=== PATIENT | male | born 1975 | race Caucasian/White ===

== ENCOUNTER 2022-10-11 16:13 | Emergency (ER) | payer OTHER ==
--- NOTE | 2022-10-11 16:47 | ERPHSYRPT ---
- History of Present Illness Time Seen by Provider: 10/11/22 16:40 Source: patient, family Exam Limitations: no limitations Patient Subjective Stated Complaint: C/O pain in right shoulder. Patient states he has been having intermittent pain for the past 6 months but the pain has become more severe and constant in the past week. Patient describes pain as a pressure and "tyler hoarse" feeling. Indicates pain is now moving into the right side of his neck and chest as well. States right bicep area is numb. Triage Nursing Assessment: Patient ambulated back to ED without difficulties. No SOB. Skin tone normal, warm, dry. He is alert and oriented but anxious. ESPINOSA WNL. Patient able to remove clothing and place self in a gown without assistance or decreased movement/ROM during the process. No skin alterations noted. Patient denies injury to back, neck, or arm; denies falls. Physician History: pt has had intermittent right shoulder pain radiating down ulnar distribution for 6 months and aggravated by turning head to right. No actual CP or SOBreath but has family ht problems at early ages and hx hptn himself, no longer requiring tx , but elevated on exam today. No prior ht dx known for himself. States that he had prior ETOH concerns but was able to quit. No Hx of trauma. decreased sensation in right c8-T1 distribution. normal strength and technical support coordinator. normal neuro exam otherwise. Chest clear, Ht reg. independent interview data from pt and consistent. Ordered EKG, Trops, D dimer, CBC, CMP, and CXR , reviewed and discussed results with pt and . Occurred: days ago Method of Injury: unknown Quality: constant Severity of Pain-Max: moderate Severity of Pain-Current: moderate Extremities Pain Location: shoulder: right, arm: right, elbow: right, forearm: right Modifying Factors: Improves With: immobilization, movement Associated Symptoms: back pain Allergies/Adverse Reactions: No Known Drug Allergies Allergy (Verified 10/11/22 16:22) Hx Tetanus, Diphtheria Vaccination/Date Given: Yes Hx Influenza Vaccination/Date Given: No Hx Pneumococcal Vaccination/Date Given: No Immunizations Up to Date: Yes Travel Risk - International Travel Have you traveled outside of the country in past 3 weeks: No - Coronavirus Screening Are you exhibiting any of the following symptoms?: No Close contact with a COVID-19 positive Pt in past 14-21 Days: No - Vaccine Status Have you recieved a Covid-19 vaccination: No - Review of Systems Constitutional: No Fever, No Chills Eyes: No Symptoms Ears, Nose, & Throat: No Symptoms Respiratory: No Cough, No Dyspnea Cardiac: No Chest Pain, No Edema, No Syncope Abdominal/Gastrointestinal: No Abdominal Pain, No Nausea, No Vomiting, No Diarrhea Genitourinary Symptoms: No Dysuria Musculoskeletal: Back Pain, Neck Pain, No Fall Skin: No Symptoms, No Rash Neurological: Parasthesia, Sensory Changes, No Dizziness, No Focal Weakness Psychological: No Symptoms Endocrine: No Symptoms Hematologic/Lymphatic: No Symptoms Immunological/Allergic: No Symptoms All Other Systems: Reviewed and Negative - Past Medical History Pertinent Past Medical History: Yes Cardiac History: Other Respiratory History: Asthma Other Medical History: "genetic heart condition" - Past Surgical History Past Surgical History: Yes - Social History Smoking Status: Current every day smoker How long have you smoked: many years Exposure to second hand smoke: No Drug Use: marijuana Patient Lives Alone: No - Nursing Vital Signs Nursing Vital Signs: Initial Vital Signs Temperature 98.4 F 10/11/22 16:24 Pulse Rate 92 H 10/11/22 16:24 Respiratory Rate 20 10/11/22 16:24 Blood Pressure 164/104 10/11/22 16:24 O2 Sat by Pulse Oximetry 99 10/11/22 16:24 Pain Scale Pain Intensity 8 - Physical Exam General Appearance: alert Eyes, Ears, Nose, Throat Exam: moist mucous membranes Neck Exam: non-tender, supple Cardiovascular/Respiratory Exam: chest non-tender, normal breath sounds, regular rate/rhythm, no respiratory distress Abdominal Exam: non-tender, No guarding Back Exam: normal inspection, No vertebral tenderness Shoulder Exam: normal inspection, non-tender, no evidence of injury, normal ROM Elbow/Forearm Exam: normal inspection, non-tender, no evidence of injury, normal ROM Wrist Exam: normal inspection, non-tender, no evidence of injury, normal ROM Hand Exam: normal inspection, non-tender, no evidence of injury, normal ROM DTR - Upper Extremity Exam: bicep (R): 2+, bicep (L): 2+, tricep (R): 2+, tricep (L): 2+ Neuro/Tendon Exam: normal sensation, normal motor functions, normal tendon functions Mental Status Exam: alert, oriented x 3, cooperative Skin Exam: normal color, warm, dry SpO2 Interpretation: normal SpO2: 99 O2 Delivery: Room Air - Course Nursing assessment & vital signs reviewed: Yes EKG Interpreted by Me: Sinus Rhythm, NORMAL AXIS, NORMAL INTERVALS, NORMAL QRS, NORMAL ST-T - Radiology Exams Chest X-ray Interpretation: Reviewed by me, Other (granulomas, patchy infiltrates vs scars. normal medistinum/ht size) Ordered Tests: Active Orders 24 hr Category Date Time Status EKG-ER Only STAT Care 10/11/22 16:50 Active IV Insertion STAT Care 10/11/22 16:50 Active CHEST 2 VIEWS (PA AND LAT) Stat Exams 10/11/22 17:40 Taken CBC W DIFF Stat Lab 10/11/22 17:01 Completed CMP Stat Lab 10/11/22 17:01 Completed D-DIMER QUANTITATIVE Stat Lab 10/11/22 16:45 Completed Lactic Acid Stat Lab 10/11/22 16:50 Completed TROPONIN Q4H Lab 10/11/22 17:01 Completed TROPONIN Q4H Lab 10/11/22 21:00 Ordered TROPONIN Q4H Lab 10/12/22 01:00 Ordered Medication Summary Discontinued Medications Generic Name Dose Route Start Last Admin Trade Name Freq PRN Reason Stop Dose Admin Methylprednisolone Sodium 0 mg 10/11/22 18:03 10/11/22 18:08 Succinate 125 mg/ Sterile IV 10/11/22 18:04 125 mg Water 2 ml STAT ONE Administration Hydromorphone HCl 1 mg 10/11/22 18:03 10/11/22 18:08 Hydromorphone 1 Mg/1ml Inj 1 Mg/Ml Syringe IV 10/11/22 18:04 1 mg STAT ONE Administration Hydromorphone HCl Confirm 10/11/22 18:05 Hydromorphone 1 Mg/1ml Inj 1 Mg/Ml Syringe Administered 10/11/22 18:06 Dose 1 mg .ROUTE .STK-MED ONE Sodium Chloride 1,000 mls @ 999 mls/hr 10/11/22 16:50 10/11/22 18:04 Sodium Chloride 0.9% 1000 Ml IV 10/11/22 17:50 Infused .Q1H1M STA Infusion Sodium Chloride Confirm 10/11/22 16:59 Sodium Chloride 0.9% 1000 Ml Administered 10/11/22 17:00 Dose 1,000 mls @ ud .ROUTE .STK-MED ONE Ketorolac Tromethamine 30 mg 10/11/22 16:56 10/11/22 17:01 Ketorolac Tromethamine 30 Mg/Ml Inj IV 10/11/22 16:57 30 mg STAT ONE Administration Ketorolac Tromethamine Confirm 10/11/22 16:59 Ketorolac Tromethamine 30 Mg/Ml Inj Administered 10/11/22 17:00 Dose 30 mg .ROUTE .STK-MED ONE Methylprednisolone Sodium Succinate Confirm 10/11/22 18:05 Methylprednis Sod Succ 125 Mg/2 Ml Vial Administered 10/11/22 18:06 Dose 125 mg .ROUTE .STK-MED ONE Ondansetron HCl 4 mg 10/11/22 16:56 10/11/22 17:01 Ondansetron Hcl 4 Mg/2 Ml Vial IV 10/11/22 16:57 4 mg STAT ONE Administration Ondansetron HCl Confirm 10/11/22 16:59 Ondansetron Hcl 4 Mg/2 Ml Vial Administered 10/11/22 17:00 Dose 4 mg .ROUTE .STK-MED ONE Orphenadrine Citrate 60 mg 10/11/22 17:06 10/11/22 17:38 Orphenadrine Citrate 60 Mg/2 Ml Vial IM 10/11/22 17:07 60 mg STAT ONE Administration Orphenadrine Citrate Confirm 10/11/22 17:37 Orphenadrine Citrate 60 Mg/2 Ml Vial Administered 10/11/22 17:38 Dose 60 mg .ROUTE .STK-MED ONE Sterile Water Confirm 10/11/22 18:05 Water For Injection,Sterile 10 Ml Vial Administered 10/11/22 18:06 Dose 10 ml IJ .STK-MED ONE Lab/Rad Data: Laboratory Result Diagrams 10/11/22 17:01 10/11/22 17:01 Laboratory Results 10/11/22 10/11/22 10/11/22 Range/Units 17:01 17:01 17:01 WBC 7.3 (4.0-10.5) x10^3/uL RBC 5.24 (4.1-5.6) x10^6/uL Hgb 16.2 (12.5-18.0) g/dL Hct 48.0 (42-50) % MCV 91.6 (78-100) fL MCH 30.9 (26-32) pg MCHC 33.8 (32-36) g/dL RDW 12.4 (11.5-14.0) % Plt Count 218 (150-450) x10^3/uL MPV 11.3 H (7.5-11.0) fL Gran % 73.7 H (36.0-66.0) % Immature Gran % (Auto) 0.3 (0.00-0.4) % Nucleat RBC Rel Count 0.0 (0.00-0.1) % Eos # (Auto) 0.10 (0-0.5) x10^3/uL Immature Gran # (Auto) 0.02 (0.00-0.03) x10^3u/L Absolute Lymphs (auto) 1.42 (1.0-4.6) x10^3/uL Absolute Monos (auto) 0.36 (0.0-1.3) x10^3/uL Absolute Nucleated RBC 0.00 (0.00-0.01) x10^3u/L Lymphocytes % 19.4 L (24.0-44.0) % Monocytes % 4.9 (0.0-12.0) % Eosinophils % 1.4 (0.00-5.0) % Basophils % 0.3 (0.0-0.4) % Absolute Granulocytes 5.39 (1.4-6.9) x10^3/uL Basophils # 0.02 (0-0.4) x10^3/uL D-Dimer (0.0-0.50) mg/L Sodium 134 L (137-145) mmol/L Potassium 4.1 (3.5-5.1) mmol/L Chloride 105 (98-107) mmol/L Carbon Dioxide 24 (22-30) mmol/L Anion Gap 9.9 (5-15) MEQ/L BUN 12 (9-20) mg/dL Creatinine 0.95 (0.66-1.25) mg/dL Estimated GFR > 60.0 ML/MIN Glucose 157 H (74-106) mg/dL Lactic Acid (0.4-2.0) Calcium 9.6 (8.4-10.2) mg/dL Total Bilirubin 0.60 (0.2-1.3) mg/dL AST 25 (17-59) U/L ALT 25 (0-50) U/L Alkaline Phosphatase 72 (38-126) U/L Troponin I < 0.012 (0.000-0.034) ng/mL Serum Total Protein 7.1 (6.3-8.2) g/dL Albumin 4.6 (3.5-5.0) g/dL 10/11/22 10/11/22 Range/Units 16:50 16:45 WBC (4.0-10.5) x10^3/uL RBC (4.1-5.6) x10^6/uL Hgb (12.5-18.0) g/dL Hct (42-50) % MCV (78-100) fL MCH (26-32) pg MCHC (32-36) g/dL RDW (11.5-14.0) % Plt Count (150-450) x10^3/uL MPV (7.5-11.0) fL Gran % (36.0-66.0) % Immature Gran % (Auto) (0.00-0.4) % Nucleat RBC Rel Count (0.00-0.1) % Eos # (Auto) (0-0.5) x10^3/uL Immature Gran # (Auto) (0.00-0.03) x10^3u/L Absolute Lymphs (auto) (1.0-4.6) x10^3/uL Absolute Monos (auto) (0.0-1.3) x10^3/uL Absolute Nucleated RBC (0.00-0.01) x10^3u/L Lymphocytes % (24.0-44.0) % Monocytes % (0.0-12.0) % Eosinophils % (0.00-5.0) % Basophils % (0.0-0.4) % Absolute Granulocytes (1.4-6.9) x10^3/uL Basophils # (0-0.4) x10^3/uL D-Dimer < 0.19 (0.0-0.50) mg/L Sodium (137-145) mmol/L Potassium (3.5-5.1) mmol/L Chloride (98-107) mmol/L Carbon Dioxide (22-30) mmol/L Anion Gap (5-15) MEQ/L BUN (9-20) mg/dL Creatinine (0.66-1.25) mg/dL Estimated GFR ML/MIN Glucose (74-106) mg/dL Lactic Acid 1.1 (0.4-2.0) Calcium (8.4-10.2) mg/dL Total Bilirubin (0.2-1.3) mg/dL AST (17-59) U/L ALT (0-50) U/L Alkaline Phosphatase (38-126) U/L Troponin I (0.000-0.034) ng/mL Serum Total Protein (6.3-8.2) g/dL Albumin (3.5-5.0) g/dL - Progress Progress: improved, re-examined Progress Note: 10/11/22 18:05 pt is advised that although the symptoms are most consistent with cervical disc Dx, and EKG and trops are normal, there still could be additional pathology evolving undetected including cardiac , vascular or other which could be serious, and he requires further w/u to precisely identify the cause of his symptoms. He understands and prefers outpt f/u rather than further w/u or observation in hospital and has the capacity to make this choice, which is reasonable given the current findings and Hx. 10/11/22 19:04 pain resolved after Tx. and pt wishes to go for outpt f/u. 10/11/22 19:10 pt advised to see pmd for bp and smoking cessation 10/11/22 19:11 Ordered EKG, Trops, D DImer, CBC, CMP , CXR, reviewed and advised pt results and to f/u PMD. Counseled pt/family regarding: lab results, diagnosis, need for follow-up, rad results, smoking cessation - Departure Departure Disposition: Home Clinical Impression: neck, back, arm radicular pain Condition: Good Critical Care Time: No Referrals: MARQUISE ABEL [Primary Care Provider] - Follow up/PCP as directed Instructions: Cervical Myelopathy , Herniated Disc (DC), Quitting Smoking ED Additional Instructions: We are providing the instructions for cervical disc Dx but there still may be additional pathology developing undetected even including cardiac or vascular even with normal studies so far. It is important to followup with your Dr. for further workup of the possible disc as well as to continue to rule out other things, and to followup your blood pressure again. Return meantime if any further concerns. Prescriptions: Cyclobenzaprine HCl 10 mg [Cyclobenzaprine 10 MG] 10 mg PO TID PRN PRN #14 tablet PRN Reason: Pain Methylprednisolone Packet [Medrol Dosepack] 4 mg PO UD #30 packet
[2022-10-11] MEDS ORDERED: Sodium Chloride 0.9% 1000 ML 1,000 ML IV STA (16:50)
[2022-10-11] MEDS ORDERED: TORAdol 30 mg Injection IV ONE (16:56)
[2022-10-11] MEDS ORDERED: Zofran 4 MG/2 ML VIAL IV ONE (16:56)
[2022-10-11] MEDS ORDERED: Sodium Chloride 0.9% 1000 ML 1,000 ML ONE (16:59)
[2022-10-11] MEDS ORDERED: Zofran 4 MG/2 ML VIAL ONE (16:59)
[2022-10-11] MEDS ORDERED: TORAdol 30 mg Injection ONE (16:59)
[2022-10-11 17:05] LABS: Absolute Neutrophil Ct (ANC) 5.39 x10^3/uL (1.4-6.9); Basophil (Absolute #) 0.02 x10^3/uL (0-0.4); Eosinophil % 1.4 % (0.00-5.0); Hemoglobin 16.2 g/dL (12.5-18.0); Lymphocyte (Absolute #) 1.42 x10^3/uL (1.0-4.6); Lymphocytes % 19.4 % (24.0-44.0); Mean Cell Volume 91.6 fL (78-100); Mean Corpuscular Hemoglobin 30.9 pg (26-32); Mean Corpuscular Hgb Concent. 33.8 g/dL (32-36); Mean Platelet Volume 11.3 fL (7.5-11.0); Monocyte (Absolute #) 0.36 x10^3/uL (0.0-1.3); Monocytes % 4.9 % (0.0-12.0); Neutrophil % 73.7 % (36.0-66.0); Platelet Count 218 x10^3/uL (150-450); Red Blood Count 5.24 x10^6/uL (4.1-5.6); Red Cell Distribution Width 12.4 % (11.5-14.0); White Blood Count 7.3 x10^3/uL (4.0-10.5)
[2022-10-11] MEDS ORDERED: Norflex 60 MG/2 ML IM ONE (17:06)
[2022-10-11 17:12] LABS: ALBUMIN 4.6 g/dL (3.5-5.0); ALKALINE PHOSPHATASE 72 U/L (38-126); ANION GAP 9.9 MEQ/L (5-15); BLOOD UREA NITROGEN 12 mg/dL (9-20); CHLORIDE 105 mmol/L (98-107); Calcium 9.6 mg/dL (8.4-10.2); Carbon Dioxide 24 mmol/L (22-30); Creatinine 1 0.95 mg/dL (0.66-1.25); EST GLOMERULAR FILTRATION RATE > 60.0 ML/MIN; Glucose 157 mg/dL (74-106); Potassium 4.1 mmol/L (3.5-5.1); SGOT/AST 25 U/L (17-59); SGPT/ALT 25 U/L (0-50); SODIUM 134 mmol/L (137-145); Total Protein 7.1 g/dL (6.3-8.2)
[2022-10-11] MEDS ORDERED: Norflex 60 MG/2 ML ONE (17:37)
[2022-10-11] MEDS ORDERED: solu-MEDROL 125 MG, Sterile H2O 10 ml 2 ML IV ONE ×2 (18:03)
[2022-10-11] MEDS ORDERED: Hydromorphone 1 mg/ml Injection IV ONE (18:03)
[2022-10-11] MEDS ORDERED: Sterile H2O 10 ml IJ ONE (18:05)
[2022-10-11] MEDS ORDERED: Hydromorphone 1 mg/ml Injection ONE (18:05)
[2022-10-11] MEDS ORDERED: solu-MEDROL ONE (18:05)
[2022-10-11 18:08] VITALS: O2SAT 99
--- NOTE | 2022-10-11 19:11 | XRAY ---
Indication: Right posterior chest pain 1 week. Comparison: None PA/lateral chest hyperinflated and clear with incidental tiny calcified granulomas. Heart not enlarged. Bony thorax intact with osteopenia and minimal degenerative changes. Impression: Nonacute hyperinflated chest with chronic features.
[2022-10-11 19:15] VITALS: BP 129/87; PULSE 64
== END 2022-10-11 19:22 | disposition home or self-care (01) ==
LOC: ED 16:13
DX: M54.12 Radiculopathy, cervical region (principal); M25.511 Pain in right shoulder; Z28.310 Unvaccinated for COVID-19; Z79.52 Long term (current) use of systemic steroids; Z72.0 Tobacco use
CPT/HCPCS: 36000; 36415; 71046; 80053; 83605; 84484; 85025; 85379; 93005; 96374; 96375; 99284; J1170; J1885; J2360; J2405; J2930

== ENCOUNTER 2024-09-13 09:41 | Emergency (ER) | payer MEDICAID, OTHER ==
--- NOTE | 2024-09-13 09:52 | ERPHSYRPT ---
- History of Present Illness Time Seen by Provider: 09/13/24 09:52 Source: patient Exam Limitations: no limitations Physician History: This is a right-handed white male patient of Dr. Ling who arrives by private vehicle accompanied by his significant other. His primary complaint is right wrist injury/pain. Patient fell into a banister yesterday morning. He went to work yesterday but this morning the pain was worse. Patient has no known drug allergies and he takes no medications chronically. He did take ibuprofen which seemed to help. Occurred: yesterday Method of Injury: direct blow, fell Quality: constant, aching Severity of Pain-Max: mild (To moderate) Severity of Pain-Current: mild (To moderate) Extremities Pain Location: wrist: right Modifying Factors: Improves With: movement Associated Symptoms: none Allergies/Adverse Reactions: No Known Drug Allergies Allergy (Verified 09/13/24 09:54) Home Medications: No Reportable Medications [No Reported Medications] 09/13/24 [History] Hx Tetanus, Diphtheria Vaccination/Date Given: Yes Hx Influenza Vaccination/Date Given: No Hx Pneumococcal Vaccination/Date Given: No Travel Risk - International Travel Have you traveled outside of the country in past 3 weeks: No - Emerging Infectious Disease Are you exhibiting symptoms associated with any current EIDs: No - Review of Systems Constitutional: No Symptoms Eyes: No Symptoms Ears, Nose, & Throat: No Symptoms Respiratory: No Symptoms Cardiac: No Symptoms Abdominal/Gastrointestinal: No Symptoms Genitourinary Symptoms: No Symptoms Musculoskeletal: No Symptoms Skin: No Symptoms Neurological: No Symptoms Psychological: No Symptoms Endocrine: No Symptoms Hematologic/Lymphatic: No Symptoms Immunological/Allergic: No Symptoms All Other Systems: Reviewed and Negative - Past Medical History Pertinent Past Medical History: Yes Cardiac History: Other Respiratory History: Asthma Other Medical History: "genetic heart condition" - Past Surgical History Past Surgical History: Yes - Social History Smoking Status: Current every day smoker How long have you smoked: many years Exposure to second hand smoke: No Drug Use: marijuana Patient Lives Alone: No - Nursing Vital Signs Nursing Vital Signs: Initial Vital Signs Temperature 98.6 F 09/13/24 09:55 Pulse Rate 88 09/13/24 09:55 Respiratory Rate 18 09/13/24 09:55 Blood Pressure 166/94 09/13/24 09:55 O2 Sat by Pulse Oximetry 98 09/13/24 09:55 Pain Scale Pain Intensity 7 - Physical Exam General Appearance: no apparent distress, alert, thin Eyes, Ears, Nose, Throat Exam: normal ENT inspection, moist mucous membranes Neck Exam: normal inspection, non-tender, supple, full range of motion Cardiovascular/Respiratory Exam: chest non-tender, no respiratory distress Abdominal Exam: non-tender Back Exam: normal inspection, normal range of motion, No CVA tenderness, No vertebral tenderness Shoulder Exam: normal inspection, non-tender, no evidence of injury, normal ROM Elbow/Forearm Exam: normal inspection, non-tender, no evidence of injury, normal ROM Wrist Exam: normal ROM, bone tenderness (Right wrist), soft tissue tenderness (Right wrist), No deformity Hand Exam: normal inspection, non-tender, no evidence of injury, normal ROM Neuro/Tendon Exam: normal sensation, normal motor functions, normal tendon functions, no evidence tendon injury Mental Status Exam: alert, oriented x 3, cooperative Skin Exam: normal color, warm, dry SpO2 Interpretation: normal O2 Delivery: Room Air - Course Nursing assessment & vital signs reviewed: Yes Ordered Tests: Active Orders 24 hr Category Date Time Status WRIST (MIN 3 VIEWS) Stat Exams 09/13/24 10:04 Completed - Progress Progress: unchanged, pain not gone completely Progress Note: 09/13/24 10:15 My medical decision making and the assignment of low complexity to this patient's medical issue today is based on review of the patient's past medical history, review the patient's medication list, reviewed patient drug allergy list, history present illness and physical findings on examination. The workup in this patient includes x-ray of the patient's right wrist. Differential diagnosis includes but is not limited to fracture/dislocation right wrist, sprain of right wrist 09/13/24 10:54 The final read of the right wrist x-ray was interpreted by the radiologist. The impression states nondisplaced fracture of the styloid process of the ulna Medical Desision Making - Independent Historian Additional History obtained from: Family - Diagnostic Testing Diagnostic test were ordered, analyzed, and reviewed by me: Yes Radiological Interpretation: Reviewed by me, Teleradiologist Report - Risk of complications Minimal Risk: Minimal risk of morbidity - Departure Departure Disposition: Home Clinical Impression: Fracture of styloid process of right ulna Condition: Stable Critical Care Time: No Referrals: MARQUISE LING [Primary Care Provider] - Follow up/PCP as directed ELISABETH JOYCE NP [NON-STAFF PHY W/O PRIVILEGES] - [facility] M-F [id number] Additional Instructions: Use brace for comfort and immobility. Follow-up at [facility] orthopedic clinic tomorrow morning, 09/14/2024, between 8 and 10 AM. It is a walk-in clinic and you do not need to have an appointment. Ice pack to area 3-4 times a day for the next 2 to 3 days. Use Tylenol and ibuprofen for pain control
[2024-09-13 10:01] VITALS: RESP 18; TEMP 98.6
--- NOTE | 2024-09-13 10:31 | XRAY ---
Indication: Swelling following injury. Comparison: None 3 portable views right wrist demonstrates nondisplaced acute fracture base ulnar styloid with adjacent soft tissue swelling. Mild 1st metacarpal multangular degenerative changes. No other bony, articular, or soft tissue abnormalities.
[2024-09-13 10:51] VITALS: BP 142/70; PULSE 76; O2SAT 97
== END 2024-09-13 11:05 | disposition home or self-care (01) ==
LOC: ED 09:41
DX: S52.611A Displaced fracture of right ulna styloid process, initial encounter for closed fracture (principal); W01.198A Fall on same level from slipping, tripping and stumbling with subsequent striking against other object, initial encounter
CPT/HCPCS: 73110; 99282; 99283; L3908